=== PATIENT | female | born 1990 | race Caucasian/White ===

== ENCOUNTER 2018-11-01 09:00 | Emergency (ER) | payer BC ==
[~2018-11-01] VITALS: Ht 165.1 cm; Wt 68.2 kg
[2018-11-01 09:11] VITALS: BP 115/64; TEMP 98.4
[2018-11-01 10:03] VITALS: PULSE 73
[2018-11-01] MEDS ORDERED: CRUTCHES MC (10:07)
== END 2018-11-01 10:06 | disposition home or self-care (01) ==
LOC: COL.ER 09:00
DX: M23.91 Unspecified internal derangement of right knee (principal); X50.1XXA Overexertion from prolonged static or awkward postures, initial encounter; Y92.009 Unspecified place in unspecified non-institutional (private) residence as the place of occurrence of the external cause
CPT/HCPCS: J1885

== ENCOUNTER → 2018-12-08 | Outpatient (CLI) | payer BC ==
[~2018-12-08] MED LIST: CRUTCHES MC
== END ==
LOC: ZCOL.LAB 13:41
DX: Z01.812 Encounter for preprocedural laboratory examination (principal); Z86.14 Personal history of Methicillin resistant Staphylococcus aureus infection